=== PATIENT | female | born 1985 | race American Indian/Alaskan Native ===

== ENCOUNTER 2017-02-05 01:24 | Emergency (ER) | payer MEDICAID ==
--- NOTE | 2017-02-05 01:48 | ED PDOC ---
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 Reports no alleviating or exacerbating factors. Pt. states she was not performing any strenuous acts when the pain began. Denies trauma, SOB, palpitations, fever, hemoptysis, hx of DVT or PE, hormonal therapy, leg pain, illicit drug use. Past Medical History Reviewed: Historical Data, Nursing Documentation, Vital Signs Vital Signs: Last Vital Signs Temp 98.3 F 02/05/17 01:33 Pulse 68 02/05/17 02:49 Resp 18 02/05/17 01:33 BP 130/74 02/05/17 01:33 Pulse Ox 100 02/05/17 02:49 - Medical History PMH: Cardia Arrhythmia Denies: CAD, HTN, Hypercholesterolemia, Hyperlipidemia - Surgical History Surgical History: Appendectomy, Tonsillectomy - Family History Family History: Denies: [place], CAD - Social History Current smoker - smoking cessation education provided: No Ex-Smoker (has not smoked in the last 12 months): No Drugs: Denies - Home Medications Home Medications: Ambulatory Orders Medication Instructions Recorded Albuterol HFA [Ventolin HFA 90 2 puff IH [id number] PRN #60 puff 02/05/17 mcg/actuation (8 g)] Naproxen [Naprosyn] 500 mg PO BID PRN #30 tab 02/05/17 Promethazine DM [Phenergan DM 5 - 10 ml PO Q8 PRN #120 ml 02/05/17 Syrup] - Allergies Allergies/Adverse Reactions: Allergies Allergy/AdvReac Type Severity Reaction Status Date / Time No Known Allergies Allergy Verified 02/05/17 01:32 Review of Systems ROS Statement: Except As Marked, All Systems Reviewed And Found Negative Cardiovascular: Positive for: Chest Pain Musculoskeletal: Positive for: Neck Pain Physical Exam - Reviewed Nursing Documentation Reviewed: Yes Vital Signs Reviewed: Yes - Physical Exam Appears: Positive for: Well, Non-toxic, No Acute Distress Head Exam: Positive for: ATRAUMATIC, NORMAL INSPECTION, NORMOCEPHALIC Skin: Positive for: Normal Color, Warm. Negative for: Rash Eye Exam: Positive for: EOMI, Normal appearance, PERRL ENT: Positive for: Normal ENT Inspection Neck: Positive for: Normal, Painless ROM, Pain On Movement Of Neck Cardiovascular/Chest: Positive for: Regular Rate, Rhythm. Negative for: Chest Non Tender (moderate mid-sternal chest wall tenderness) Respiratory: Positive for: CNT, Normal Breath Sounds Gastrointestinal/Abdominal: Positive for: Normal Exam, Soft. Negative for: Tenderness Back: Positive for: Normal Inspection, Vertebral Tenderness (including cervical spine), Muscle Spasm (L trapezius muscle spasm with tenderness). Negative for: L CVA Tenderness, R CVA Tenderness Extremity: Positive for: Normal ROM Neurologic/Psych: Positive for: Alert, Oriented - Laboratory Results Result Diagrams: 02/05/17 01:55 02/05/17 01:55 - ECG ECG: Positive for: Interpreted By Me ECG Rhythm: Positive for: Sinus Rhythm. Negative for: ST/T Changes Rate: 68 O2 Sat by Pulse Oximetry: 100 - Radiology X-Ray: Interpreted by Me (CXR) X-Ray Interpretation: No Acute Disease - Progress ED Course And Treament: Labs ordered. Toradol 30mg IV, CXR ordered. 0247 On re-evaluation, pt. reports that she's had a dry cough since yesterday associated with nasal congestion but no fever. Informed of results. Disposition - Clinical Impression Clinical Impression: URI (upper respiratory infection), Chest wall pain - Patient ED Disposition Is Patient to be Admitted: No - Disposition Referrals: [facility] [Outside] Disposition: Routine/Home Disposition Time: 02:48 Condition: STABLE Prescriptions: Albuterol HFA [Ventolin HFA 90 mcg/actuation (8 g)] 2 puff IH [id number] PRN #60 puff PRN Reason: Cough Naproxen [Naprosyn] 500 mg PO BID PRN #30 tab PRN Reason: Pain Promethazine DM [Phenergan DM Syrup] 5 - 10 ml PO Q8 PRN #120 ml PRN Reason: Cough Instructions: Upper Respiratory Infection (ED), Chest Wall Pain (ED) Forms: [employer] (Malaysian)
[2017-02-05 01:58] LABS: BASO # 0.1 K/uL (0.0-0.2); BASO % 0.9 % (0.0-2.0); EOS # 0.8 K/uL (0.0-0.7); EOS % 7.2 % (0.0-4.0); HEMATOCRIT 34.6 % (34.0-47.0); LYMPH # 3.3 K/uL (1.0-4.3); LYMPH % 29.8 % (20.0-40.0); MEAN CELL VOLUME 71.9 fl (81.0-99.0); MEAN CORPUSCULAR HEMOGLOBIN 22.5 pg (27.0-31.0); MEAN CORPUSCULAR HGB CONC 31.2 g/dL (33.0-37.0); MONO # 1.2 K/uL (0.0-0.8); MONO % 11.2 % (0.0-10.0); NEUT # 5.7 K/uL (1.8-7.0); NEUT % 50.9 % (50.0-75.0); RED CELL DISTRIBUTION WIDTH 17.8 % (11.5-14.5); WHITE BLOOD COUNT 11.1 K/uL (4.8-10.8)
[2017-02-05 02:06] LABS: ALKALINE PHOSPHATASE 69 U/L (38-126); ALT/SGPT 27 U/L (9-52); AST/SGOT 32 U/L (14-36); BILIRUBIN,TOTAL 0.3 mg/dl (0.2-1.3); BLOOD UREA NITROGEN 16 mg/dl (7-17); CALCIUM 9.3 mg/dL (8.4-10.2); CARBON DIOXIDE 29 mmol/L (22-30); CHLORIDE 102 mmol/L (98-107); GFR AFRICAN-AMERICAN > 60; GLUCOSE,RANDOM 81 mg/dL (65-105); POTASSIUM 3.8 MMOL/L (3.6-5.0); SODIUM 141 mmol/l (132-148); TOTAL PROTEIN 8.4 G/DL (6.3-8.2)
[2017-02-05] MEDS ORDERED: Albuterol 0.083% Inhal Sol (2.5 mg/3 mL) UD INH STA ×2 (02:50→06:06)
[2017-02-05 02:52] LABS: ALB/GLOB RATIO 1.2 (1.0-2.1)
[2017-02-05 03:07] VITALS: RESP 16
[2017-02-05 06:14] VITALS: BP 117/57; PULSE 97; TEMP 97.6; O2SAT 99
--- NOTE | 2017-02-05 17:42 | CARD ---
APPROVED REPORT EKG Measurement Heart [id number] OH [id number] <Conclusion> Sinus rhythm with marked sinus arrhythmia Otherwise normal ECG
== END 2017-02-05 06:30 | disposition home or self-care (01) ==
LOC: H.ER 01:24
DX: J06.9 Acute upper respiratory infection, unspecified (principal)
CPT/HCPCS: 71020; 80053; 81025; 84484; 85025; 93005; 94640; 96374; 99285; J1885

== ENCOUNTER 2017-05-06 01:13 | Emergency (ER) | payer MEDICAID ==
[2017-05-06 01:37] VITALS: BP 114/67; PULSE 61; RESP 16; TEMP 98.1; O2SAT 98
--- NOTE | 2017-05-06 02:03 | ED PDOC ---
HPI: CCC, URI, Sore Throat Time Seen by Provider: 05/06/17 01:50 Chief Complaint (Nursing): Cough, Cold, Congestion Chief Complaint (Provider): flu-like symptoms History Per: Patient History/Exam Limitations: no limitations Onset/Duration Of Symptoms: Days (3) Current Symptoms Are (Timing): Still Present Additional Complaint(s): 32 y/o female presents with flu-like symptoms x 3 days. Patient reports headache, tactile fevers, bodyaches, nasal congestion, and cough. Denies nausea /vomiting, chest pain, shortness of breath, palpitations, abdominal pain, changes in bowel movements, urinary symptoms. Patient with + sick contacts. No medications taken for relief thus far. Past Medical History Reviewed: Historical Data, Nursing Documentation, Vital Signs Vital Signs: Last Vital Signs Temp 98.1 F 05/06/17 01:35 Pulse 61 05/06/17 01:35 Resp 16 05/06/17 01:35 BP 114/67 05/06/17 01:35 Pulse Ox 98 05/06/17 01:35 - Medical History PMH: Cardia Arrhythmia Denies: CAD, HTN, Hypercholesterolemia, Hyperlipidemia - Surgical History Surgical History: Appendectomy, Tonsillectomy - Family History Family History: Denies: [place], CAD - Home Medications Home Medications: Ambulatory Orders Medication Instructions Recorded Albuterol HFA [Ventolin HFA 90 2 puff IH [id number] PRN #60 puff 02/05/17 mcg/actuation (8 g)] Naproxen [Naprosyn] 500 mg PO BID PRN #30 tab 02/05/17 Promethazine DM [Phenergan DM 5 - 10 ml PO Q8 PRN #120 ml 02/05/17 Syrup] Fluticasone Nasal [Flonase] 1 actuation NS BID #1 bottle 05/06/17 Oseltamivir [Tamiflu] 75 mg PO BID #9 cap 05/06/17 - Allergies Allergies/Adverse Reactions: Allergies Allergy/AdvReac Type Severity Reaction Status Date / Time No Known Allergies Allergy Verified 02/05/17 01:32 Review of Systems ROS Statement: Except As Marked, All Systems Reviewed And Found Negative Constitutional: Positive for: Chills, Malaise ENT: Positive for: Nose Congestion Respiratory: Positive for: Cough Physical Exam - Reviewed Nursing Documentation Reviewed: Yes Vital Signs Reviewed: Yes - Physical Exam Appears: Positive for: Well, Non-toxic, No Acute Distress Head Exam: Positive for: ATRAUMATIC, NORMAL INSPECTION, NORMOCEPHALIC Skin: Positive for: Normal Color Eye Exam: Positive for: Normal appearance ENT: Positive for: Nasal Congestion Cardiovascular/Chest: Positive for: Regular Rate, Rhythm Respiratory: Positive for: Normal Breath Sounds Gastrointestinal/Abdominal: Positive for: Normal Exam Back: Positive for: Normal Inspection Extremity: Positive for: Normal ROM Neurologic/Psych: Positive for: Alert, Oriented - ECG O2 Sat by Pulse Oximetry: 98 - Progress ED Course And Treament: Patient educated on findings, will treat with tamiflu for clinical influenza. Rx tamiflu, flonase provided. Advised fluids, rest. Follow up PMD 2-3 days. Return precautions given. Disposition - Clinical Impression Clinical Impression: Influenza-like illness - Patient ED Disposition Is Patient to be Admitted: No Counseled Patient/Family Regarding: Diagnosis, Need For Followup, Rx Given - Disposition Disposition: Routine/Home Disposition Time: 02:05 Condition: STABLE Prescriptions: Fluticasone Nasal [Flonase] 1 actuation NS BID #1 bottle Oseltamivir [Tamiflu] 75 mg PO BID #9 cap Instructions: Influenza (ED) Forms: [employer] ([place]ian), [facility] ED School/Work Excuse
== END 2017-05-06 02:35 | disposition home or self-care (01) ==
LOC: H.ER 01:13
DX: J11.1 Influenza due to unidentified influenza virus with other respiratory manifestations (principal)